=== PATIENT | female | born 1945 | race Caucasian/White ===

== ENCOUNTER 2021-06-13 09:28 | Outpatient (CLI) | payer MEDICARE | END 2021-06-13 09:29 | disposition home or self-care (01) | LOC: CSHMRI 09:28 | PROVIDERS: ATTEND Orthopaedic Surgery | DX: S46.012A Strain of muscle(s) and tendon(s) of the rotator cuff of left shoulder, initial encounter (principal); S43.492A Other sprain of left shoulder joint, initial encounter; M25.412 Effusion, left shoulder; M24.112 Other articular cartilage disorders, left shoulder ==